=== PATIENT | female | born 2005 ===

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

== ENCOUNTER 2024-01-03 14:55 | Emergency (ER) | payer OTHER, SELFPAY ==
[2024-01-03 14:57] VITALS: BP 104/59
[2024-01-03 15:52] VITALS: BMI 25.9
--- NOTE | 2024-01-03 16:34 | ED.GENMED ---
History of Present Illness
General
Chief Complaint: Musculo-Skeletal Complaint
Source: patient
Exam Limitations: none
Time Seen by Provider: 01/03/24 16:07
Nursing documentation reviewed up to this point in time: agreed with
History of Present Illness
History of Present Illness:
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
chronic headaches
anemia iron deficient
here with R arm pain, numbness and R hand carpal spasm for the past motnsh to weeks and worse int he past few days
has seen [facility] for serial MRIs last was about 2 yeras ago and she was essentially discharged with them saying only return if sypmtoms start because she had stable MRI
here with progressive neuro sypmtoms - started really a year ago in R foot with some burning/nerve sounding pain, saw podiatry, had foot inserts; saw associate software development engineer, got inserts, PT
pain progressed to R hip/sciatica region and she was dealing with that for a while, taking medication and trying exercises
then several months ago started feeling burning pain in her R hand working up the arm just in the mornings, numbness; neck pain, thought sshe was sleeping wrong;
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
initailly only in the morning and now is throughout the day
saw her PCP last week and had cervical xray which showed loss of lordosis but no other issues
cannot get neuro appt until march;w as told to come here; PCP is trying to get MRI approved and hasn't had success and since symptoms seemed worse, recommended ER.
her mom has RA and lupus
pot has no seizure activity
normal eating habits
isn't really taking iron for her anemia currently
has had iron
Phy Exam
Physical Exam
Physical Exam:
GENERAL: Alert , in no apparent distress
HEAD: NCAT
EYE: pupils equal and reactive, no nystagmus, no photophobia
NECK: Supple,full rom, mild right sided tendenress paraspinal
ENT: o/p clr, mmm.
CARDIAC: Regular rate and rhythm . no edema
LUNGS: Clear breath sounds bilaterally, no acute respiratory distress, no wheezes/rales/rhonchi
ABDOMEN: Soft, without focal tenderness, no r/g, no cvat
NEUROLOGICAL: Alert and orientedx 4, cn intact, no facial asymmetry, 5/5 strength in UE/LE, sensation intact, romberg neg, ambulates without assistance, neg pronator drift
normal strengtha nd sensation
2+ reflexes UE
3+ reflexes LE
SKIN: Warm and dry, skin intact.
MUSCULOSKELETAL: No edema, well perfused.
full rom
no carpal spasm
normal strength and sensation
PSYCH: Normal and appropriate interaction.
Course
Orders/Labs/Results
Orders:
Orders
01/03/24 16:34
CT Cervical Spine W/o Iv Contr Urgent
Comment:
Reason For Exam: pineal cyst; new neuro sxs R arm weakness/numbness
Test Result ONCE
01/03/24 16:36
CT Head W/o Iv Contrast Urgent
Comment:
Reason For Exam: pineal cyst, r arm weakness
01/03/24 16:46
Complete Blood Count/With Diff Urgent
Comprehensive Metabolic Panel Urgent
HCG, Serum Qualitative Screen Urgent
Magnesium Urgent
TSH Reflex To Free T4 Urgent
Vitamin B12 Urgent
01/03/24 17:58
Prednisone [Deltasone] 40 mg PO NOW STA
Abnormal Lab Results
01/03/24
16:46
RBC 3.96 L 10^6/uL
(4.20-5.40)
Hgb 9.3 L g/dL
(12.0-16.0)
Hct 28.7 L %
(37.0-47.0)
MCV 72.5 L fL
(81.0-99.0)
MCH 23.5 L pg
(27.0-31.0)
MCHC 32.4 L g/dL
(33.0-37.0)
RDW 16.1 H %
(11.5-14.5)
BUN 6 L mg/dl
(7-17)
01/03/24 16:46
01/03/24 16:46
Vital Signs
Initial and Last Documented VS:
Initial Vital Signs
Temp Pulse Resp BP Pulse Ox
98 F 85 16 104/59 100
01/03/24 14:57 01/03/24 14:57 01/03/24 14:57 01/03/24 14:57 01/03/24 14:57
Last Documented Vital Signs
Temp Pulse Resp BP Pulse Ox
98 F 75 18 119/72 100
01/03/24 14:57 01/03/24 18:20 01/03/24 18:20 01/03/24 18:20 01/03/24 14:57
MDM/Problems Addressed
Differential Diagnosis Includes:
neuropathy, radiculopathy, brain tumor, carpal tunnel, ms, autoimmune problem
MDM/Problems Addressed:
18 y/o F
h/o pineal cyst dx in [place]; has seen [facility] for serial MRIs last was about 2 yeras ago and she was essentially discharged with them saying only return if sypmtoms start because she had stable MRI
here with progressive neuro sypmtoms - started really a year ago in R foot with some burning/nerve sounding pain, saw podiatry, had foot inserts yada yada
pain progressed to R hip/sciatica region and she was dealing with that for a while
then several months ago started feeling burning pain in her R hand working up the arm just in the mornings, numbness; neck pain, thought sshe was sleeping wrong;
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
initailly only in the morning and now is throughout the day
saw her PCP last week and had cervical xray which showed loss of lordosis but no other issues
cannot get neuro appt until march;w as told to come here for MRI
here pt has normal strength and sensation, no significant neck tendnress, mild R sied, but no cuada equina/red flag symptoms
symmetric reflexes
2-3+
her mom has RA and lupus
labs and ct are reassuring - likely stable appearing pineal cyst
d/w ed attending dr. pan
will try round of steroids
but highly encourage f/u with pcp, rheum, neuro
*Critical Care Note
Total Time (30-74mins, 75-104mins- exclusive of procedures): Not Applicable
ED Attending Note
-
Portions of this chart may have been created with voice recognition software.� Occasional wrong word or��sound alike� substitutions may have occurred due to the inherent limitations of voice recognition software.
Discharge Plan
Departure
Patient Disposition: Home (Routine Discharge)
Date of Disposition: 01/03/24
Time of Disposition: 17:43
Patient with high blood pressure during this ER visit?: No
Condition: Fair
Covid-19: Not Applicable
Discharge Problem:
Cervical radiculopathy
Instructions: Radiculopathy (DC)
Prescriptions:
New
prednisone 20 mg tablet
40 mg PO DAILY Qty: 8 0RF
cyclobenzaprine 5 mg tablet
5 mg PO HS PRN (Reason: muscle spasm) Qty: 10 0RF
ferrous sulfate 325 mg (65 mg iron) tablet
325 mg PO BID Qty: 60 0RF
No Action
B12
20 mcg PO DAILY
magnesium 250 mg Tablet
250 mg PO DAILY
coenzyme Q10 [Co Q-10] 200 mg Capsule
200 mg PO DAILY
sertraline [Zoloft] 25 mg Tablet
25 mg PO DAILY
Referrals:
Janna José PA [Family Provider] - Follow up in 2-3 days
Activity Restrictions/Additional Instructions:
YOUR CAT SCAN OF YOUR HEAD SHOWED YOUR CYST WHICH APPEARS LESS THAN 2 CM; IT IS HARD TO COMPARE TO MRI DIMENSIONS SINCE MRI IS MUCH MORE SENSITIVE SO IT LIKELY IS UNCHANGED BUT YOU WOULD NEED ANOTHER MRI TO BE SURE
YOU HAD NO NEW FINDINGS OTHERWISE
YOUR CAT SCAN OF YOUR NECK SHOWS SOME STRAIGHTENING OF YOUR SPINE SUGGESTING MUSCLE SPASM
TRY PREDNISONE 40 MG ONCE A DAY FOR 4 DAYS
THIS CAN HELP INFLAMMATION
YOU CAN TRY A DOSE OF FLEXERIL AT NIGHT BEFORE BED, 5 MG. IF THIS ISN'T HELPFUL YOU CAN TRY 10 MG TOMORROW NIGHT (2 TABS); DO NOT TAKE THIS DURING THE DAY BECAUSE IT WILL MAKE YOU SLEEPY
FOLLOW UP WITH YOUR FAMILY DOCTOR PLANNED
CONTINUE TO TRY TO GET NEUROLOGY APPOINTMENT
RETURN FOR: ANY SEVERE SYPMTOMS, WROSENING WEAKNESS, OR ANY CONCERNS.
YOU ARE ALSO MILDLY ANEMIC
I AM CHECKING YOUR VITAMIN B 12 LEVEL BUT IT CAN TAKE SOME TIME TO RESULT
FOLLOW UP WITH YOUR DOCTOR REGARDING THIS - YOU SHOULD BE TAKING IRON
Interventions
Interventions:
*Risk Screen - Suicide Last Done: 01/03/24 15:02
*General Assessment Last Done: 01/03/24 15:53
*Neglect/Abuse Screening Last Done: 01/03/24 15:02
ED- Fall Risk Assessment Last Done: 01/03/24 16:02
*ED COVID-19 Vaccine History Last Done: 01/03/24 15:01
*Nursing Disposition Last Done: 01/03/24 18:24
ED-Musculoskeletal Assessment Last Done: 01/03/24 16:00
Discharge Date and Time
Discharge Date/Time: 01/03/24 18:31
Print Language: URDU
[2024-01-03 16:54] LABS: % Basophils 0.7 % (0-2); % Eosinophils 1.7 % (0-6); % Immature Granulocytes 0.2 % (0-0.5); % Lymphocytes 39.5 % (20.5-51.1); % Monocytes 8.1 % (1.7-9.3); % Neutrophils 49.8 % (42.2-75.2); Absolute Eosinophils 0.1 10^3/uL (0-0.7); Absolute Lymphocytes 2.1 10^3/uL (1.2-3.4); Absolute Monocytes 0.4 10^3/uL (0.1-0.6); Absolute Neutrophils 2.7 10^3/uL (1.4-6.5); Hematocrit 28.7 % (37.0-47.0); Hemoglobin 9.3 g/dL (12.0-16.0); Mean Corp Hgb Conc. 32.4 g/dL (33.0-37.0); Mean Corpuscular Hgb 23.5 pg (27.0-31.0); Mean Corpuscular Volume 72.5 fL (81.0-99.0); Mean Platelet Volume 10.1 fL (7.4-10.4); Nucleated Red Blood Cells % 0 %; Platelet Count 339 10^3/uL (130-400); Red Blood Cell Count 3.96 10^6/uL (4.20-5.40); Red Cell Dist. Width 16.1 % (11.5-14.5); White Blood Cell Count 5.3 10^3/uL (4.8-10.8)
[2024-01-03 17:10] LABS: HCG, Serum Qualitative Screen Negative
[2024-01-03 17:13] LABS: ALT (SGPT) 13 U/L (0-35); AST (SGOT) 18 U/L (14-36); Albumin 4.5 g/dl (3.5-5.0); Alkaline Phosphatase 45 U/L (38-126); Blood Urea Nitrogen 6 mg/dl (7-17); Calcium 9.5 mg/dl (8.4-10.2); Carbon Dioxide 24 mmol/L (22-30); Chloride 103 mmol/L (98-107); Estimated Creatinine Clearance > 125 ml/min; Glucose 89 mg/dl (70-99); Magnesium 1.8 mg/dl (1.6-2.3); Potassium 4.1 mmol/L (3.5-5.1); Sodium 140 mmol/L (135-145); Total Bilirubin 0.6 mg/dl (0.2-1.3); Total Protein 7.1 g/dl (6.3-8.2); eGFR > 60.00
[2024-01-03 17:40] LABS: TSH Reflex To Free T4 1.19 uIU/ml (0.47-4.68)
[2024-01-03 18:06] LABS: Vitamin B12 275 pg/ml (239-931)
[2024-01-03] MEDS: DELTASONE 40 MG PO (18:17)
[2024-01-03 18:20] VITALS: BP 119/72
== END 2024-01-03 18:31 | disposition home or self-care (01) ==
LOC: EMR 14:55
PROVIDERS: Physician Assistant; EMERGENCY PHYSICIAN Emergency Medicine; FAMILY PHYSICIAN Physician Assistant Medical
DX: M54.12 Radiculopathy, cervical region (principal); Z86.2 Personal history of diseases of the blood and blood-forming organs and certain disorders involving the immune mechanism
CPT/HCPCS: 99284; 70450; 72125; 80053; 82607; 83735; 84443; 84703; 85025

== ENCOUNTER → 2024-01-18 13:44 | Outpatient (REF) | payer OTHER, SELFPAY | LOC: MRI 3T 13:44 | PROVIDERS: ATTENDING PHYSICIAN Physician Assistant Medical; FAMILY PHYSICIAN Physician Assistant Medical | DX: M54.12 Radiculopathy, cervical region (principal); R25.9 Unspecified abnormal involuntary movements; R29.898 Other symptoms and signs involving the musculoskeletal system | CPT/HCPCS: 72141 ==